=== PATIENT | male | born 1975 | race Caucasian/White ===

== ENCOUNTER 2017-12-29 09:18 | Emergency (ER) | payer OTHER ==
[~2017-12-29] VITALS: Ht 180.3 cm; Wt 93.2 kg
[2017-12-29] MEDS ORDERED: PREDNISONE20 M1 PO (09:54)
[2017-12-29 09:59] VITALS: BP 109/78
== END 2017-12-29 10:04 | disposition home or self-care (01) ==
LOC: ED 09:18
DX: L23.7 Allergic contact dermatitis due to plants, except food (principal)
CPT/HCPCS: J2930

== ENCOUNTER 2019-01-22 02:31 | Emergency (ER) | payer OTHER ==
[~2019-01-22 02:31] MED LIST: PREDNISONE20 M1 PO
[2019-01-22] MEDS ORDERED: ZYRTEC ALLERGY10 MG PO (02:39)
[2019-01-22] MEDS ORDERED: PREDNISONE20 MG PO ×2 (03:07→03:10)
[2019-01-22 03:10] VITALS: BP 123/68
== END 2019-01-22 03:15 | disposition home or self-care (01) ==
LOC: ED 02:31
DX: L25.9 Unspecified contact dermatitis, unspecified cause (principal); F17.210 Nicotine dependence, cigarettes, uncomplicated
CPT/HCPCS: J2930

== ENCOUNTER → 2019-06-03 | Outpatient (CLI) | payer OTHER ==
[~2019-06-03] MED LIST changes: +PREDNISONE20 MG PO; +ZYRTEC ALLERGY10 MG PO
== END ==
LOC: RAD 12:15
DX: M79.89 Other specified soft tissue disorders (principal)